=== PATIENT | female | born 1975 | race Caucasian/White ===

== ENCOUNTER 2017-01-09 08:13 | Emergency (ER) | payer OTHER ==
[~2017-01-09] VITALS: Ht 170.2 cm; Wt 81.6 kg
[~2017-01-09 08:13] MED LIST: BUPR100T6 PO; ESCI10TA PO; LISI10TA2 PO
--- NOTE | 2017-01-09 08:31 | ED.ADGEN ---
Past History Past Medical History: Depression, Hypertension Past Surgical History: , Hysterectomy Alcohol Use: None Drug Use: None Adult General Chief Complaint Chief Complaint Left ankle pain HPI HPI Patient is a 41 year old female who presents with left ankle pain after twisting on a bleacher yesterday evening. She denies hitting her head or having any other injury. She does not have any neck or back pain. She has been ambulating on the affected extremity but has pain on the medial aspect when she does so. She has injured this leg in the past. Review of Systems Review of Systems Constitutional: Denies fever or chills [] Eyes: Denies change in visual acuity, redness, or eye pain [] HENT: Denies nasal congestion or sore throat [] Respiratory: Denies cough or shortness of breath [] Cardiovascular: Denies chest pain GI: Denies abdominal pain, nausea, vomiting, bloody stools or diarrhea [] : Denies dysuria or hematuria [] Musculoskeletal: Denies back pain Integument: Denies rash or skin lesions [] Neurologic: Denies headache, focal weakness or sensory changes [] Allergies Allergies Allergies Coded Allergies Type Severity Reaction Last Updated Verified metoclopramide Allergy Intermediate spasms 03/08/16 Yes amoxicillin Allergy Unknown gi 03/08/16 Yes Physical Exam Physical Exam Constitutional: Well developed, well nourished HENT: Normocephalic, atraumatic Eyes: conjunctiva normal, no discharge. [] Neck: Normal range of motion Cardiovascular:Heart rate regular Lungs & Thorax: No respiratory distress Extremities: Left lower extremity without edema or deformity, DP pulse 2+, wiggles toes, normal strength of the ankle with plantar and dorsiflexion, minimal tenderness to the medial malleolus otherwise nontender, Achilles intact Neurologic: Alert and oriented X 3, normal motor function, normal sensory function, no focal deficits noted. [] Psychologic: Affect normal, judgement normal, mood normal. [] Current Patient Data Vital Signs Vital Signs Date Time Temp Pulse Resp B/P Pulse Ox O2 Delivery O2 Flow Rate FiO2 01/09/17 09:10 72 20 138/81 98 Room Air 01/09/17 08:13 97.6 EKG EKG [] Radiology/Procedures Radiology/Procedures ankle XRay: Three-view left ankle study Indications: Twisting injury yesterday. Medial pain. Findings: No acute fracture or dislocation or osteolytic process is seen. The mortise ankle joint is intact. Mild lateral soft tissue swelling is seen. IMPRESSION: No acute fracture. [] Course & Med Decision Making Course & Med Decision Making Pertinent Labs and Imaging studies reviewed. (See chart for details) Informed patient that based on the [place] ankle rules she did not require an ankle x-ray, however the patient requests one because she states that she sprained her ankle in the past and "this feels different". X-ray of her ankle was performed. Sprain care instructions given, dc'd with ibuprofen rx Final Impression Final Impression acute left ankle sprain [] Problems: Dragon Disclaimer Dragon Disclaimer This electronic medical record was generated, in whole or in part, using a voice recognition dictation system. SEEMA KATZ MD Jan 09, 2017 08:30
--- NOTE | 2017-01-09 08:59 | RAD ---
Three-view left ankle study Indications: Twisting injury yesterday. Medial pain. Findings: No acute fracture or dislocation or osteolytic process is seen. The mortise ankle joint is intact. Mild lateral soft tissue swelling is seen. IMPRESSION: No acute fracture.
[2017-01-09] MEDS ORDERED: IBUP600T16 PO (09:08)
[2017-01-09 09:10] VITALS: BP 138/81
== END 2017-01-09 09:10 | disposition home or self-care (01) ==
LOC: ER 08:13
DX: S93.402A Sprain of unspecified ligament of left ankle, initial encounter (principal); I10 Essential (primary) hypertension; Z88.1 Allergy status to other antibiotic agents; Z88.8 Allergy status to other drugs, medicaments and biological substances; X58.XXXA Exposure to other specified factors, initial encounter; Y93.89 Activity, other specified; Y99.8 Other external cause status; Y92.89 Other specified places as the place of occurrence of the external cause
CPT/HCPCS: 73610; 99284

== ENCOUNTER 2020-09-23 15:47 | Emergency (ER) | payer OTHER ==
[~2020-09-23] VITALS: Ht 165.1 cm; Wt 93.7 kg
[~2020-09-23 15:47] MED LIST changes: -ESCI10TA PO; +ESCITALOPRAM OX10 MG PO; +IBUP600T16 PO
[2020-09-23] MEDS ORDERED: cloNIDine HCL 0.1 MG TABLET PO ONE (17:00)
[2020-09-23 17:38] LABS: BASO % 1 % (0-3); EOS # 0.2 x10^3/uL (0.0-0.7); EOS % 3 % (0-3); HEMATOCRIT 40.5 % (36.0-47.0); HEMOGLOBIN 13.6 g/dL (12.0-15.5); LYMPH % 34 % (24-48); MEAN CORPUSCULAR HEMOGLOBIN 30 pg (25-35); MEAN CORPUSCULAR HGB CONC 34 g/dL (31-37); MEAN CORPUSCULAR VOLUME 88 fL (79-100); MONO # 0.4 x10^3/uL (0.0-1.1); MONO % 6 % (0-9); NEUT # 3.3 x10^3uL (1.8-7.7); NEUT % 56 % (31-73); PLATELET COUNT 328 x10^3/uL (140-400); RED BLOOD COUNT 4.61 x10^6/uL (3.50-5.40); WHITE BLOOD COUNT 5.9 x10^3/uL (4.0-11.0)
[2020-09-23 17:48] LABS: CALCIUM 8.9 mg/dL (8.5-10.1); CREATININE 0.8 mg/dL (0.6-1.0); GFR 77.9; POTASSIUM 3.8 mmol/L (3.5-5.1)
[2020-09-23 18:07] LABS: INFLUENZA A PATIENT NEGATIVE (NEGATIVE); INFLUENZA B PATIENT NEGATIVE (NEGATIVE)
[2020-09-23 18:49] VITALS: BP 142/87
--- NOTE | 2020-09-23 19:04 | PHYS DOC ---
Past History Past Medical History: Hypertension, Migraines, Other Additional Past Medical Histor: ADHD Past Surgical History: Hysterectomy, Other Additional Past Surgical Histo: GASTRIC SLEEVE Alcohol Use: None Drug Use: None Adult General Chief Complaint Chief Complaint: HEADACHE HPI HPI Patient is a 45-year-old female presents emergency department complaint of headache for 4 days, stating that she usually has migraines but it was unusual that this one has lasted this long, patient states her current migraine is no different from her previous migraines. Patient fears that she might have the Covid virus. Patient states that she took her temperature this afternoon at 1400 and it was 100.1. Patient states she took one 500 mg [id number] Tylenol for her fever prior to coming to the emergency department today. Patient denies any aura, denies numbness or tingling, denies any chills, denies chest pains, denies shortness of breath or chest congestion. Patient denies any general malaise or body aches. Patient denies any loss of taste or loss of smell. Patient denies any rashes of her skin. Patient denies nausea vomiting diarrhea or abdominal pains. Patient denies any urinary tract infection type signs and symptoms. Patient denies any other physical illnesses or physical complaints. Patient wishes to have a COVID-19 virus lab checked today. Review of Systems Review of Systems 14 body systems of review of systems have been reviewed. See HPI for pertinent positives and negative responses, otherwise all other systems are negative, nonpertinent or noncontributory. Current Medications Current Medications Current Medications Medications (Trade) Dose Ordered Sig/Kim Start Time Stop Time Status Last Admin Dose Admin Clonidine HCl (Catapres) 0.1 mg 1X ONCE 09/23/20 17:00 09/23/20 17:07 DC Allergies Allergies Allergies Coded Allergies Type Severity Reaction Last Updated Verified metoclopramide Allergy Intermediate spasms 03/08/16 Yes amoxicillin Allergy Unknown gi 03/08/16 Yes Physical Exam Physical Exam Constitutional: Well developed, well nourished, no acute distress, non-toxic appearance. HENT: Normocephalic, atraumatic, bilateral external ears normal, oropharynx moist, no oral exudates, nose normal. Eyes: PERRLA, EOMI, conjunctiva normal, no discharge. Neck: Normal range of motion, no tenderness, supple, no stridor. Cardiovascular:Heart rate regular rhythm, no murmur Lungs & Thorax: Bilateral breath sounds clear to auscultation Abdomen: Bowel sounds normal, soft, no tenderness, no masses, no pulsatile masses. Skin: Warm, dry, no erythema, no rash. Back: No tenderness, no CVA tenderness. Extremities: No tenderness, no cyanosis, no clubbing, ROM intact, no edema. Neurologic: Alert and oriented X 3, normal motor function, normal sensory function, no focal deficits noted. Psychologic: Affect normal, judgement normal, mood normal. Current Patient Data Vital Signs Vital Signs Date Time Temp Pulse Resp B/P (MAP) Pulse Ox O2 Delivery O2 Flow Rate FiO2 09/23/20 15:50 97.8 90 20 163/114 (130) 98 Room Air Lab Results Laboratory Tests Test 09/23/20 17:10 09/23/20 17:14 White Blood Count 5.9 x10^3/uL (4.0-11.0) Red Blood Count 4.61 x10^6/uL (3.50-5.40) Hemoglobin 13.6 g/dL (12.0-15.5) Hematocrit 40.5 % (36.0-47.0) Mean Corpuscular Volume 88 fL (79-100) Mean Corpuscular Hemoglobin 30 pg (25-35) Mean Corpuscular Hemoglobin Concent 34 g/dL (31-37) Red Cell Distribution Width 13.0 % (11.5-14.5) Platelet Count 328 x10^3/uL (140-400) Neutrophils (%) (Auto) 56 % (31-73) Lymphocytes (%) (Auto) 34 % (24-48) Monocytes (%) (Auto) 6 % (0-9) Eosinophils (%) (Auto) 3 % (0-3) Basophils (%) (Auto) 1 % (0-3) Neutrophils # (Auto) 3.3 x10^3uL (1.8-7.7) Lymphocytes # (Auto) 2.0 x10^3/uL (1.0-4.8) Monocytes # (Auto) 0.4 x10^3/uL (0.0-1.1) Eosinophils # (Auto) 0.2 x10^3/uL (0.0-0.7) Basophils # (Auto) 0.0 x10^3/uL (0.0-0.2) Sodium Level 139 mmol/L (136-145) Potassium Level 3.8 mmol/L (3.5-5.1) Chloride Level 104 mmol/L (98-107) Carbon Dioxide Level 28 mmol/L (21-32) Anion Gap 7 (6-14) Blood Urea Nitrogen 12 mg/dL (7-20) Creatinine 0.8 mg/dL (0.6-1.0) Estimated GFR (Cockcroft-Gault) 77.9 Glucose Level 83 mg/dL (70-99) Calcium Level 8.9 mg/dL (8.5-10.1) Influenza Type A (Rapid) Negative (NEGATIVE) Influenza Type B (Rapid) Negative (NEGATIVE) EKG EKG [] Radiology/Procedures Radiology/Procedures [] Heart Score Risk Factors: Risk Factors: DM, Current or recent (<one month) smoker, HTN, HLP, family history of CAD, obesity. Risk Scores: Risk Factors: DM, Current or recent (<one month) smoker, HTN, HLP, family history of CAD, obesity. Course & Med Decision Making Course & Med Decision Making Pertinent Labs and Imaging studies reviewed. (See chart for details) 25-year-old patient is to the emergency department today wishing for a Covid test reported a fever prior to arrival but took [id number] Tylenol. Vital signs were within normal limits except for she was hypertensive initially at triage. Ordered oral clonidine 0.1 mg, however prior to receiving this oral medication patient's blood pressure reduced to within normal limits. The oral clonidine was thus DC'd. Monitor patient while pending lab results, lab results were unremarkable. Patient did have mild erythema of the oropharynx without postnasal drip. A Covid test was obtained. Discussed with patient COVID-19 virus isolation, patient gave verbal understanding of self-isolation related to the COVID-19 virus, return to ER concerns and precautions, see her physician soon if not feeling better, patient states that her headache had resolved without medication in the ED. patient's rapid flu A/B test was negative, strep test was negative, discussed with patient this is most likely a viral pharyngitis versus COVID-19 symptoms. Patient is discharged blood pressure was 142/87. Dragon Disclaimer Dragon Disclaimer This electronic medical record was generated, in whole or in part, using a voice recognition dictation system. Departure Departure: Impression: Primary Impression: Headache Additional Impressions: Pharyngitis with viral syndrome Person under investigation for COVID-19 Counseled about COVID-19 virus infection Educated about COVID-19 virus infection Disposition: 01 DC HOME SELF CARE/HOMELESS Condition: IMPROVED Referrals: ALBINO MINA (PCP) Patient Instructions: General Headache Without Cause, Viral Syndrome Additional Instructions: Please take Tylenol and or Motrin [id number] for your aches and pains, please socially isolate until your COVID-19 tests are known, I have printed some helpful instructions regarding the COVID-19 virus and attach them to this document, please return to the emergency department for worsening symptoms or other concerns, follow with your primary care doctor soon. EMERGENCY DEPARTMENT GENERAL DISCHARGE INSTRUCTIONS Thank you for coming to [facility] (ED) today and trusting us with you care. We trust that you had a positivie experience in our Emergency Department. If you wish to speak to the department management, you may call the director at [phone]. YOUR FOLLOW UP INSTRUCTIONS ARE FOLLOWS: 1. Do you have a private Doctor? If you do not have a private doctor, please ask for a resource list of physicians or clinics that may be able to assist you with follow up care. 2. The Emergency Physician has interpreted your x-rays. The X-Ray specialist will also review them. If there is a change in the findings, you will be notified in 48 hours when at all possible. 3. A lab test or culture has been done, your results will be reviewed and you will be notified if you need a change in treatment. ADDITIONAL INSTRUCTIONS AND INFORMATION: 1. Your care today has been supervised by a physician who is specially trained in emergency care. Many problems require more than one evaluation for a complete diagnosis and treatment. We recommend that you schedule your follow up appointment as recommended to ensure complete treatment of you illness or injury. If you are unable to obtain follow up care and continue to have a problem, or if your condition worsens, we recommend that you return to the ED. 2. We are not able to safely determine your condition over the phone nor are we able to give sound medical advice over the phone. For these safety reasons, if you call for medical advice we will ask you to come to the ED for further evaluation. 3. If you have any questions regarding these discharge instructions please call the ED at [phone]. SAFETY INFORMATION: In the interest of safety, wellness, and injury prevention; we encourage you to wear your sealbelt, if you smoke; quite smoking, and we encourage family to use a protective helmet for bicycling and other sporting events that present an increased risk for head injury. IF YOUR SYMPTOMS WORSEN OR NEW SYMPTOMS DEVELOP, OR YOU HAVE CONCERNS ABOUT YOUR CONDITION; OR IF YOUR CONDITION WORSENS WHILE YOU ARE WAITING FOR YOUR FOLLOW UP APPOINTMENT; EITHER CONTACT YOUR PRIMARY CARE DOCTOR, THE PHYSICIAN WHOSE NAME AND NUMBER YOU WERE GIVEN, OR RETURN TO THE ED IMMEDIATELY. You have been tested for or diagnosed with COVID-19. It is an infection caused by a new type of coronavirus. COVID-19 will cause cold-like or mild flu symptoms in most. It can cause more severe symptoms like problems breathing in some. There is no treatment for COVID-19. The body will clear the infection over time. Self-care will help to ease discomfort. Steps to Take: Self-Care Rest as needed. Healthy habits may help you feel better. Steps include: Choose healthy foods including fruits and vegetables. Drink water throughout the day. Get plenty of sleep each night. If you smoke, try to quit. It may ease breathing. Avoid alcohol. Keep Others Healthy The virus can spread to others. Droplets are released every time you sneeze or cough. The droplets can get into the mouth, nose, or eyes of people near you and lead to infection. To lower the chances of spreading COVID-19 to others: Stay at home until your doctor has said it is safe to leave. If you tested positive this will mean staying isolated until both of the following are true: At least 7 days have passed since the start of illness. You are free of fever for at least 72 hours without the use of medicine. During this time: - Avoid public areas, events, or transportation. Do not return to work or school until your doctor has said it is safe to do so. - Call ahead if you need to go to a medical center. Let them know you may have COVID-19. It will help them guide you where to go. They may also ask you to wear a facemask when you come to the office. - If you call for emergency medical services, let them know you may have COVID- 19. While at home: - Try to avoid close contact with others. Stay about 6 feet away. - If possible, spend most of your time in a separate room from others. - Use a face mask if you will be in close contact with others such as sharing a room or vehicle. - Have someone wipe down common surfaces in the home. Use household punch press setter every day on areas like doorknobs, counters, or sinks. - Cough or sneeze into a tissue. Throw the tissue away right after use. If a tissue is not available, cough or sneeze into your elbow. - Wash your hands often. Wash them after sneezing or coughing. Use soap and water and wash for at least 20 seconds. Alcohol based hand kettle cleaner can be used if soap and water is not available. - Do not prepare food for others. Avoid sharing personal items like forks, spoons, or toothbrushes. - Avoid close contact with pets while you are sick. There is no evidence of the virus passing to pets. This is a safety step until more is known about this virus. Isolation can be frustrating. Social interaction can help. Keep in touch with friends and family through phone and tech options. You can still interact with others in your home, just keep a safe distance of about 6 feet. Follow-up: Your doctors office will check in with you to see if there are any changes in your health. You may be asked to keep track of symptoms to share with them. They will also let you know when you are clear to be in public again. Problems to Look Out For: Contact your doctor if your recovery is not going as you expect. Get emergency care if you have problems such as: - Trouble breathing - Nonstop chest pain or pressure - Changes in awareness, confusion, or problems waking - Lips or face have bluish color - Worsening of symptoms If you think you have an emergency, call for emergency medical services right away. As taken from [facility] [place] [facility] Problem Qualifiers Primary Impression: Headache Headache type: tension-type Headache chronicity pattern: unspecified pattern Intractability: not intractable Qualified Codes: G44.209 - Tension-type headache, unspecified, not intractable [employer] Sep 23, 2020 19:04
[2020-09-23] MEDS ORDERED: IBUPROFEN 600 MG TABLET. PO ONE (19:15)
--- NOTE | 2020-09-26 12:50 | NUR ---
IP: attempt to notify patient of COVID result, number not in service, will send letter.
== END 2020-09-23 19:25 | disposition home or self-care (01) ==
LOC: ER 15:47
DX: G43.909 Migraine, unspecified, not intractable, without status migrainosus (principal); B34.9 Viral infection, unspecified; J02.9 Acute pharyngitis, unspecified; I10 Essential (primary) hypertension; F90.9 Attention-deficit hyperactivity disorder, unspecified type; Z20.828 Contact with and (suspected) exposure to other viral communicable diseases; Z88.1 Allergy status to other antibiotic agents; Z88.8 Allergy status to other drugs, medicaments and biological substances
CPT/HCPCS: 36415; 80048; 85025; 87070; 87804; 87880; 99285; C9803; U0003